=== PATIENT | male | born 1965 | race Hispanic/Latino ===

== ENCOUNTER 2020-05-02 07:10 | Inpatient (IN) | payer SELFPAY ==
[2020-05-02] MEDS ORDERED: Lidocaine 1% (PF) 30 ML VIAL ONE (07:19)
[2020-05-02] MEDS ORDERED: Nitroglycerin 0.4 MG TAB (25 Tab Bottle) SL PRN (07:46)
[2020-05-02] MEDS ORDERED: Morphine 2 MG/ML VIAL SLOW IVP PRN ×3 (07:46→17:30)
[2020-05-02] MEDS ORDERED: Sodium Chloride 0.9% 500 ML IV SCH (08:00)
[2020-05-02] MEDS ORDERED: Albumin 5% 500 ML ONE (08:19)
[2020-05-02] MEDS ORDERED: Fentanyl 250 MCG/5 ML VIAL ONE (09:03)
[2020-05-02] MEDS ORDERED: Midazolam HCl 2 mg/2 ml Vial ONE (09:03)
[2020-05-02] MEDS ORDERED: Phenylephrine 10 MG/ML VIAL ONE (09:03)
[2020-05-02] MEDS ORDERED: Levofloxacin 500 mg/D5W 100 ml Premix Bag ONE (09:05)
[2020-05-02] MEDS ORDERED: Clindamycin/D5W 900 mg/50 ml Premix Bag ONE (09:05)
[2020-05-02] MEDS ORDERED: Mannitol 12.5 GM/50 ML ONE (09:19)
[2020-05-02] MEDS ORDERED: Heparin 5,000 UNITS/ML VIAL ONE (09:19)
[2020-05-02] MEDS ORDERED: Sodium Bicarb 50 MEQ/50 ML Abboject 8.4% SYRINGE ONE (09:19)
[2020-05-02] MEDS ORDERED: Vecuronium 10 MG VIAL ONE (09:19)
[2020-05-02] MEDS ORDERED: Cardioplegic Soln 1,000 ML BAG ONE (09:19)
[2020-05-02] MEDS ORDERED: Aminocaproic Acid 5 GM/20 ML VIAL ONE (09:19)
[2020-05-02] MEDS ORDERED: Lidocaine 2% PF 100 mg/5 ml Syringe ONE (09:19)
[2020-05-02] MEDS ORDERED: Potassium Chloride 60 MEQ/30 ML VIAL ONE (09:19)
[2020-05-02] MEDS ORDERED: Thrombin 5000 UNITS/5 ML VIAL ONE (09:19)
[2020-05-02] MEDS ORDERED: Calcium Chloride 1 GM/10 ML Abboject SYRINGE ONE (09:19)
[2020-05-02] MEDS ORDERED: Rocuronium Bromide 10 MG/ML (10ML VIAL) ONE (09:19)
[2020-05-02] MEDS ORDERED: Papaverine 60 MG/2 ML VIAL ONE (09:19)
[2020-05-02] MEDS ORDERED: Heparin 30,000 units/30 ml VIAL ONE (09:19)
[2020-05-02] MEDS ORDERED: Protamine Sulfate 250 MG/25 ML VIAL ONE (09:19)
[2020-05-02] MEDS ORDERED: PROPOFOL 200 MG/20 ML VIAL ONE (09:19)
[2020-05-02] MEDS ORDERED: Magnesium Sulfate 1 GM/2 ML VIAL ONE (09:19)
[2020-05-02] MEDS ORDERED: PHENYLEPHRINE-NS 100 MCG/ML 10 ML SYRINGE ONE (10:06)
[2020-05-02 10:31] LABS: Troponin I 0.466 ng/mL (< 0.028)
[2020-05-02] MEDS ORDERED: Insulin Regular 300 UNITS/3 ML VIAL ONE (12:16)
[2020-05-02] MEDS ORDERED: hydrALAZINE 20 MG/ML VIAL SLOW IVP PRN (14:37)
[2020-05-02] MEDS ORDERED: Norepinephrine 8 MG/0.9% NS 250 ML IVPB PRN (14:37)
[2020-05-02] MEDS ORDERED: Nitroglycerin 50 MG/250 ML BOT 250 ML IVPB PRN (14:37)
[2020-05-02] MEDS ORDERED: Potassium Chloride 20 MEQ/100 ML PREMIX BAG IVPB PRN (14:37)
[2020-05-02] MEDS ORDERED: Hetastarch 6% 500 ML 500 ML IVPB PRN (14:37)
[2020-05-02] MEDS ORDERED: Bisacodyl 5 MG TAB PO PRN (14:37)
[2020-05-02] MEDS ORDERED: Acetaminophen 325 MG TAB PO PRN (14:37)
[2020-05-02] MEDS ORDERED: Guaifenesin DM 100-10/5 ML UDCUP PO PRN (14:37)
[2020-05-02] MEDS ORDERED: niCARdipine 25 MG in Sodium Chloride 0.9% 250 ML 240 ML IVPB PRN (14:37)
[2020-05-02] MEDS ORDERED: Bisacodyl 10 MG SUPP PR PRN (14:37)
[2020-05-02] MEDS ORDERED: Promethazine HCl 25 MG/ML VIAL IM PRN (14:37)
[2020-05-02] MEDS ORDERED: Post-Op Insulin Drip Protocol IVPB ONE (14:37)
[2020-05-02] MEDS ORDERED: Ondansetron PF 4 MG/2 ML Vial IVP PRN (14:37)
[2020-05-02] MEDS ORDERED: DOPamine 400 MG/D5W 250 ML 250 ML IVPB PRN (14:37)
[2020-05-02] MEDS ORDERED: Mag-Al 1200 mg/1200 mg/30 ML UDCUP PO PRN (14:37)
[2020-05-02] MEDS ORDERED: Fentanyl 100 MCG/2 ML VIAL SLOW IVP PRN ×2 (14:37)
[2020-05-02] MEDS ORDERED: HYDROcodone/Acetaminophen 5/325 mg Tablet PO PRN ×2 (14:37)
[2020-05-02] MEDS ORDERED: Morphine 4 MG/ML VIAL ONE (14:48)
[2020-05-02] MEDS ORDERED: Nitroglycerin 50 MG/250 ML BOT 250 ML ONE (14:49)
[2020-05-02 14:54] LABS: Hemoglobin 16.1 g/dL (14.0-18.0); Mean Corpuscular HGB CONC 33.3 g/dL (32.0-36.0); Mean Corpuscular Hemoglobin 31.9 pg (27.0-31.0); Mean Corpuscular Volume 95.9 fL (78.0-98.0); Mean Platelet Volume 9.5 fL (7.4-10.4); Platelet Count 154 thou/uL (130-400); RBC Distribution Width 12.5 % (11.5-14.5); Red Blood Cell (RBC) Count 5.04 mill/uL (4.70-6.10); White Blood Cell (WBC) Count 26.8 thou/uL (4.8-10.8)
[2020-05-02 15:00] LABS: INR-International Normal Ratio 1.2; Prothrombin Time 15.4 sec (12.0-14.7)
[2020-05-02 15:02] LABS: Anion Gap 17 mmol/L (10-20); BUN (Urea Nitrogen) 18 mg/dL (8.4-25.7); Calc. Creatinine Clearance 0 mL/min (70-130); Calcium 7.4 mg/dL (7.8-10.44); Carbon Dioxide 19 mmol/L (22-29); Chloride 107 mmol/L (98-107); Glucose 142 mg/dL (70-105); Sodium 138 mmol/L (136-145)
[2020-05-02 15:05] LABS: Actual Bicarbonate (HCO3a) 22.7 mEq/L (22-28); Base Excess (BEa) -4.9 mEq/L (-2.0 to +3.0); Calcium, Ionized (arterial) 1.05 mmol/L (1.12-1.30); Carboxyhemoglobin (COHb) 2.5 gm% (0.0-3.0); Hemoglobin (Hb) 17.3 g/dL (14.0-18.0); O2 Tension (PaO2), arterial 69.8 mmHg (80.0-100.0); Potassium - ABG Lab 4.51 mmol/L (3.70-5.30); pH, Arterial 7.27 (7.35-7.45)
[2020-05-02 15:08] LABS: Puncture Site Arterial Line
[2020-05-02 15:10] LABS: Band 22 % (5-11); Eosinophils 1 % (0-10); Lymphocytes 7 % (21-51); Monocytes 8 % (0-10); Neutrophil 58 % (42-75); Reactive Lymphocytes 4 % (0-10)
[2020-05-02 15:12] LABS: MDiff Complete? YES; Platelet Morphology Comment Appears Adequate; RBC Morphology Normal
[2020-05-02] MEDS ORDERED: Dextrose 5% in Water 1,000 ML IV PRN (15:15)
[2020-05-02] MEDS ORDERED: Magnesium 2 GM/50 ML 2 GM in Premix Bag 1 BAG IVPB SCH (15:15)
[2020-05-02] MEDS ORDERED: Dextrose 50% Abboject 50 ML SYRINGE SLOW IVP PRN (15:15)
[2020-05-02] MEDS ORDERED: HUMULIN R 100 UNITS in Sodium Chloride 0.9% 100 ML IVPB SCH (15:15)
[2020-05-02] MEDS: Lactated Ringer's 1,000 ML IV SCH (15:46)
[2020-05-02] MEDS: Aspirin Chewable 81 MG TAB PO SCH (15:46)
[2020-05-02] MEDS: Clindamycin/D5W 900 MG in Premix Bag 1 BAG IVPB SCH ×2 (15:52→20:11)
[2020-05-02] MEDS ORDERED: Magnesium 2 GM/50 ML BAG (IN WATER) ONE (15:55)
[2020-05-02 16:16] LABS: Troponin I 4.172 ng/mL (< 0.028)
[2020-05-02] MEDS ORDERED: Fentanyl CADD 100 ML IV SCH (17:30)
[2020-05-02] MEDS ORDERED: Fentanyl BOLUS 250 ML IVPB PRN (17:30)
[2020-05-02] MEDS ORDERED: Propofol BOLUS 1,000 MG/100 ML VIAL IV PRN (17:30)
[2020-05-02] MEDS ORDERED: Propofol 1,000 MG/100 ML VIAL IV PRN (17:30)
[2020-05-02] MEDS ORDERED: DISCONTINUE PREVIOUS NARCOTIC PAIN MEDICATIONS AND BENZODIAZEPINES FS SCH (17:30)
[2020-05-02] MEDS ORDERED: Lorazepam 2 MG/ML VIAL SLOW IVP PRN (17:30)
[2020-05-02 20:00] LABS: Hemoglobin 16.9 g/dL (14.0-18.0)
[2020-05-02] MEDS: Atorvastatin Calcium 40 MG TAB PO SCH (20:11)
[2020-05-02] MEDS: Famotidine/PF 20 mg/2ml Vial SLOW IVP SCH (20:11)
[2020-05-02 20:14] LABS: Potassium 5.2 mmol/L (3.5-5.1)
[2020-05-03] MEDS: Clindamycin/D5W 900 MG in Premix Bag 1 BAG IVPB SCH ×2 (04:41→10:44)
[2020-05-03 05:27] LABS: Anion Gap 19 mmol/L (10-20); BUN (Urea Nitrogen) 19 mg/dL (8.4-25.7); Calc. Creatinine Clearance 155 mL/min (70-130); Calcium 8.2 mg/dL (7.8-10.44); Carbon Dioxide 21 mmol/L (22-29); Chloride 105 mmol/L (98-107); Glucose 145 mg/dL (70-105); Potassium 5.1 mmol/L (3.5-5.1); Sodium 140 mmol/L (136-145)
[2020-05-03 06:55] LABS: Hemoglobin 16.5 g/dL (14.0-18.0); Mean Corpuscular HGB CONC 33.8 g/dL (32.0-36.0); Mean Corpuscular Hemoglobin 32.7 pg (27.0-31.0); Mean Corpuscular Volume 96.9 fL (78.0-98.0); Mean Platelet Volume 9.7 fL (7.4-10.4); Platelet Count 165 thou/uL (130-400); RBC Distribution Width 12.6 % (11.5-14.5); Red Blood Cell (RBC) Count 5.03 mill/uL (4.70-6.10); White Blood Cell (WBC) Count 15.4 thou/uL (4.8-10.8)
[2020-05-03] MEDS: Lactated Ringer's 1,000 ML IV SCH (07:10)
[2020-05-03 07:15] LABS: #Basophils 0.1 thou/uL (0.0-0.2); #Lymphocytes 1.3 thou/uL (1.20-3.40); #Monocytes 1.1 thou/uL (0.11-0.59); #Neutrophils 12.9 thou/uL (1.40-6.50); %Basophils 0.5 % (0.0-1.0); %Eosinophils 0.1 % (0.0-10.0); %Lymphocytes 8.4 % (21.0-51.0); %Monocytes 7.4 % (0.0-10.0); %Neutrophils 83.6 % (42.0-75.0); Band 1 % (5-11); Lymphocytes 8 % (21-51); MDiff Complete? YES; Monocytes 4 % (0-10); Neutrophil 87 % (42-75); RBC Morphology Normal
[2020-05-03 07:59] LABS: Base Excess (BEa) -4.6 mEq/L (-2.0 to +3.0); CO2 Tension 45.8 mmHg (35.0-45.0); Calcium, Ionized (arterial) 1.14 mmol/L (1.12-1.30); Carboxyhemoglobin (COHb) 0.9 gm% (0.0-3.0); Hemoglobin (Hb) 16.7 g/dL (14.0-18.0); Potassium - ABG Lab 4.85 mmol/L (3.70-5.30)
[2020-05-03 08:00] LABS: O2 Tension (PaO2), arterial 59.5 mmHg (80.0-100.0); Puncture Site RRA
[2020-05-03] MEDS ORDERED: Insulin Glargine 6 UNITS in Pre-Filled Syringe 1 EACH SC SCH (09:45)
[2020-05-03] MEDS: Famotidine/PF 20 mg/2ml Vial SLOW IVP SCH ×2 (09:51→20:41)
[2020-05-03] MEDS: Aspirin Chewable 81 MG TAB PO SCH (10:16)
[2020-05-03] MEDS: Polyethylene Glycol 3350 17 GM Packet PO SCH (10:17)
[2020-05-03] MEDS ORDERED: Fentanyl 100 MCG/2 ML VIAL SLOW IVP PRN ×2 (10:24→10:25)
[2020-05-03] MEDS: HYDROcodone/Acetaminophen 5/325 mg Tablet PO PRN ×3 (10:41→19:24)
[2020-05-03] MEDS: Insulin Regular 300 UNITS/3 ML VIAL SC PRN ×3 (12:55→21:27)
[2020-05-03] MEDS: Atorvastatin Calcium 40 MG TAB PO SCH (20:41)
[2020-05-04] MEDS: HYDROcodone/Acetaminophen 5/325 mg Tablet PO PRN ×4 (03:15→18:01)
[2020-05-04 04:32] LABS: Anion Gap 15 mmol/L (10-20); BUN (Urea Nitrogen) 18 mg/dL (8.4-25.7); Calc. Creatinine Clearance 191 mL/min (70-130); Calcium 8.8 mg/dL (7.8-10.44); Carbon Dioxide 26 mmol/L (22-29); Chloride 97 mmol/L (98-107); Glucose 162 mg/dL (70-105); Potassium 4.4 mmol/L (3.5-5.1); Sodium 134 mmol/L (136-145)
[2020-05-04 04:37] LABS: #Basophils 0.1 thou/uL (0.0-0.2); #Lymphocytes 2.2 thou/uL (1.20-3.40); #Monocytes 1.4 thou/uL (0.11-0.59); #Neutrophils 11.6 thou/uL (1.40-6.50); %Basophils 0.7 % (0.0-1.0); %Eosinophils 0.2 % (0.0-10.0); %Lymphocytes 14.4 % (21.0-51.0); %Monocytes 8.9 % (0.0-10.0); %Neutrophils 75.9 % (42.0-75.0); Hemoglobin 14.2 g/dL (14.0-18.0); Mean Corpuscular HGB CONC 31.6 g/dL (32.0-36.0); Mean Corpuscular Hemoglobin 30.5 pg (27.0-31.0); Mean Corpuscular Volume 96.4 fL (78.0-98.0); Mean Platelet Volume 9.8 fL (7.4-10.4); Platelet Count 141 thou/uL (130-400); RBC Distribution Width 12.7 % (11.5-14.5); Red Blood Cell (RBC) Count 4.65 mill/uL (4.70-6.10); White Blood Cell (WBC) Count 15.3 thou/uL (4.8-10.8)
[2020-05-04 06:03] VITALS: BMI 38.5
[2020-05-04] MEDS: Insulin Regular 300 UNITS/3 ML VIAL SC PRN ×2 (06:14→11:08)
[2020-05-04] MEDS ORDERED: Furosemide 40 MG/4 ML VIAL SLOW IVP SCH (06:45)
[2020-05-04] MEDS: Aspirin Chewable 81 MG TAB PO SCH (08:06)
[2020-05-04] MEDS: Famotidine 20 MG TAB PO SCH ×2 (08:06→21:09)
[2020-05-04] MEDS: Amiodarone 200 MG TAB PO SCH ×2 (08:06→21:09)
[2020-05-04] MEDS: Lisinopril 2.5 MG TAB PO SCH (08:07)
[2020-05-04] MEDS: Furosemide 40 MG/4 ML VIAL SLOW IVP SCH (08:07)
[2020-05-04] MEDS: Polyethylene Glycol 3350 17 GM Packet PO SCH (08:07)
[2020-05-04] MEDS: Atorvastatin Calcium 40 MG TAB PO SCH (21:09)
[2020-05-04] MEDS ORDERED: diphenhydrAMINE 25 MG CAP PO PRN (23:30)
[2020-05-04] MEDS ORDERED: Zolpidem Tartrate 5 MG TAB PO PRN (23:30)
[2020-05-04] MEDS ORDERED: Guaifenesin DM 100-10/5 ML UDCUP PO PRN (23:30)
[2020-05-04] MEDS ORDERED: Nitroglycerin 0.4 MG TAB (25 Tab Bottle) SL PRN (23:30)
[2020-05-04] MEDS ORDERED: Dextrose 50% Abboject 50 ML SYRINGE SLOW IVP PRN (23:45)
[2020-05-04] MEDS ORDERED: Potassium Chloride 10 MEQ TAB PO SCH (23:45)
[2020-05-04] MEDS ORDERED: Metoprolol Tartrate 25 MG TAB PO SCH (23:45)
[2020-05-04] MEDS ORDERED: Dextrose 5% in Water 1,000 ML IV PRN (23:45)
[2020-05-04] MEDS ORDERED: Aspirin 325 mg Enteric Coated Tablet PO SCH (23:45)
[2020-05-04] MEDS ORDERED: Enoxaparin Sodium 40 MG/0.4 ML SYRINGE SC SCH (23:45)
[2020-05-05] MEDS: Ketorolac Tromethamine 30 MG/ML VIAL IVP SCH ×5 (00:34→23:11)
[2020-05-05] MEDS: Insulin Regular 300 UNITS/3 ML VIAL SC PRN ×2 (06:19→09:21)
[2020-05-05 08:08] LABS: Glucose 199 mg/dL (70-105)
[2020-05-05] MEDS: Polyethylene Glycol 3350 17 GM Packet PO SCH (09:13)
[2020-05-05] MEDS: Metoprolol Tartrate 25 MG TAB PO SCH ×2 (09:13→21:08)
[2020-05-05] MEDS: Famotidine 20 MG TAB PO SCH ×2 (09:14→21:09)
[2020-05-05] MEDS: Aspirin 325 mg Enteric Coated Tablet PO SCH (09:14)
[2020-05-05] MEDS: Amiodarone 200 MG TAB PO SCH ×2 (09:14→21:09)
[2020-05-05] MEDS: Lisinopril 2.5 MG TAB PO SCH (09:15)
[2020-05-05] MEDS: Potassium Chloride 10 MEQ TAB PO SCH (09:15)
[2020-05-05] MEDS: Furosemide 40 MG/4 ML VIAL SLOW IVP SCH (10:12)
[2020-05-05 11:58] LABS: Glucose 228 mg/dL (70-105)
[2020-05-05 17:22] LABS: Glucose 161 mg/dL (70-105)
[2020-05-05] MEDS ORDERED: traMADol HCl 50 MG TAB PO PRN (18:57)
[2020-05-05] MEDS ORDERED: Enoxaparin Sodium 40 MG/0.4 ML SYRINGE SC SCH (21:00)
[2020-05-05] MEDS: Atorvastatin Calcium 40 MG TAB PO SCH (21:09)
[2020-05-05 21:29] LABS: Glucose 198 mg/dL (70-105)
[2020-05-06] MEDS: Ketorolac Tromethamine 30 MG/ML VIAL IVP SCH (05:16)
[2020-05-06] MEDS ORDERED: Furosemide 40 MG TAB PO SCH (07:30)
[2020-05-06 07:44] LABS: Glucose 178 mg/dL (70-105)
[2020-05-06 08:19] VITALS: TEMP 98.3
[2020-05-06] MEDS: Polyethylene Glycol 3350 17 GM Packet PO SCH (08:20)
[2020-05-06] MEDS: Aspirin 325 mg Enteric Coated Tablet PO SCH (08:20)
[2020-05-06] MEDS: Amiodarone 200 MG TAB PO SCH (08:20)
[2020-05-06] MEDS: Potassium Chloride 10 MEQ TAB PO SCH (08:20)
[2020-05-06] MEDS: Famotidine 20 MG TAB PO SCH (08:20)
[2020-05-06] MEDS: Metoprolol Tartrate 25 MG TAB PO SCH (08:20)
[2020-05-06] MEDS: Lisinopril 2.5 MG TAB PO SCH (08:20)
[2020-05-06 09:37] LABS: SARS-CoV-2 NAA Rapid Test Not Detected (NotDetected)
[2020-05-06 11:28] VITALS: BP 130/79
== END 2020-05-06 12:25 | disposition home or self-care (01) | DRG 233 ==
LOC: SDC 07:10 → CCU 07:26 → 2NO 05-05 13:00
PROVIDERS: ADMIT Internal Medicine Cardiovascular Disease; ATTEND Internal Medicine Cardiovascular Disease
PROC: 02100Z9 Bypass Coronary Artery, One Artery from Left Internal Mammary, Open Approach (ICD-10-PCS; principal; 2020-05-02)
PROC: 4A023N7 Measurement of Cardiac Sampling and Pressure, Left Heart, Percutaneous Approach (ICD-10-PCS; 2020-05-02)
PROC: 02100AW Bypass Coronary Artery, One Artery from Aorta with Autologous Arterial Tissue, Open Approach (ICD-10-PCS; 2020-05-02)
PROC: 03BC0ZZ Excision of Left Radial Artery, Open Approach (ICD-10-PCS; 2020-05-02)
PROC: 021009W Bypass Coronary Artery, One Artery from Aorta with Autologous Venous Tissue, Open Approach (ICD-10-PCS; 2020-05-02)
PROC: 06BQ0ZZ Excision of Left Saphenous Vein, Open Approach (ICD-10-PCS; 2020-05-02)
PROC: B2111ZZ Fluoroscopy of Multiple Coronary Arteries using Low Osmolar Contrast (ICD-10-PCS; 2020-05-02)
PROC: 5A1221Z Performance of Cardiac Output, Continuous (ICD-10-PCS; 2020-05-02)
PROC: 5A1935Z Respiratory Ventilation, Less than 24 Consecutive Hours (ICD-10-PCS; 2020-05-03)
DX: I21.09 ST elevation (STEMI) myocardial infarction involving other coronary artery of anterior wall (principal); J95.821 Acute postprocedural respiratory failure; I25.10 Atherosclerotic heart disease of native coronary artery without angina pectoris; F17.210 Nicotine dependence, cigarettes, uncomplicated; E11.9 Type 2 diabetes mellitus without complications; F32.9 Major depressive disorder, single episode, unspecified; Z20.822 Contact with and (suspected) exposure to COVID-19; Z95.5 Presence of coronary angioplasty implant and graft; Z88.0 Allergy status to penicillin; Z90.49 Acquired absence of other specified parts of digestive tract
CPT/HCPCS: 36415; 36416; 36430; 36600; 71045; 80048; 82805; 82947; 85025; 85730; 86850; 86900; 86901; 93005; 93010; 93306; 93798; 94002; 94003; 94150; 94640; 94660; 97139; J0690; J1644; J1650; J1815; J1885; J1940; J1956; J2001; J2150; J2250; J2270; J2370; J2405; J2440; J2550; J2704; J2720; J3010; J3370; J3475; J3480; J3490; J7620; P9045; S0017; S0028; U0002